=== PATIENT | female | born 1955 | race Caucasian/White ===

== ENCOUNTER 2017-01-15 11:23 | Emergency (ER) | payer BC, OTHER ==
[~2017-01-15 11:23] MED LIST: Iopamidol 370 76% 100 ML VIAL ONE
[2017-01-15 12:29] LABS: #Lymphocytes 0.9 thou/uL (1.20-3.40); #Monocytes 0.4 thou/uL (0.11-0.59); #Neutrophils 4.7 thou/uL (1.40-6.50); %Basophils 0.7 % (0.0-1.0); %Eosinophils 0.2 % (0.0-10.0); %Lymphocytes 14.8 % (21.0-51.0); %Neutrophils 77.3 % (42.0-75.0); Hemoglobin 13.9 g/dL (12.0-16.0); Mean Corpuscular HGB CONC 33.5 g/dL (32.0-36.0); Mean Corpuscular Hemoglobin 33.3 pg (27.0-31.0); Mean Corpuscular Volume 99.5 fl (81.0-99.0); Mean Platelet Volume 7.2 fL (7.4-10.4); Platelet Count 216 thou/uL (130-400); RBC Distribution Width 11.4 % (11.5-14.5); Red Blood Cell (RBC) Count 4.18 mill/uL (4.20-5.40)
[2017-01-15] MEDS ORDERED: Ondansetron HCl/PF 4 MG/2 ML Vial ONE (12:29)
[2017-01-15 12:42] LABS: ALT (SGPT) 33 U/L (0-55); AST (SGOT) 36 U/L (5-34); Albumin 3.6 g/dL (3.5-5.0); Alkaline Phosphatase 99 U/L (40-150); Anion Gap 11 mmol/L (10-20); BUN (Urea Nitrogen) 13 mg/dL (9.8-20.1); Bilirubin, Total 0.3 mg/dL (0.2-1.2); Calc. Creatinine Clearance 0 mL/min (70-130); Calcium 8.6 mg/dL (7.8-10.44); Carbon Dioxide 22 mmol/L (22-29); Chloride 108 mmol/L (98-107); Estimated GFR-MDRD 78; Globulin 2.9 g/dL (2.4-3.5); Glucose 129 mg/dL (70-105); Lipase 5 U/L (8-78); Potassium 3.7 mmol/L (3.5-5.1); Protein, Total 6.5 g/dL (6.0-8.3); Sodium 137 mmol/L (136-145)
[2017-01-15] MEDS ORDERED: diphenhydrAMINE HCl 50 MG/ML 1 ML VIAL ONE (12:56)
[2017-01-15 13:55] LABS: Bilirubin Negative (Negative); Blood, Urine Negative (Negative); Clarity Clear (Clear); Glucose, Urine (Dipstick) Negative (Negative); Leukocyte Negative (Negative); Nitrite Negative (Negative); Protein, Urine (Dipstick) Negative (Neg-Trace); Urobilinogen 0.2 mg/dL (0.2-1.0); pH, Urine 5.5 (5.0-9.0)
[2017-01-15 13:57] LABS: Specific Gravity, Urine 1.006 (1.005-1.030)
--- NOTE | 2017-01-15 20:33 | CT ---
CT ABDOMEN AND PELVIS WITH CONTRAST: Date: 01-15-[address] of the abdomen and pelvis was performed using both oral and IV contrast. Axial slices were acquired then coronal reconstructions were done. FINDINGS: The lung bases are clear. The liver, spleen, pancreas, adrenal glands, kidneys, and abdominal aorta showed no acute changes. There has been a prior cholecystectomy. The major finding on the study is multiple dilated fluid filled loops of bowel consistent with a bow el obstruction. The small bowel is dilated to a width of 3.5-4 cm in some places. There is also some mild dilation and fluid filling of the right colon around to about the mid transverse level. The di stal colon seems normal in size. Thus, a potential transition point in the transverse colon region i s suggested. No free air or free fluid was seen at the moment. CT of the pelvis remarkable only for the multiple dilated loops of bowel. No free fluid was seen in the pelvis. IMPRESSION: 1. Multiple dilated loops of bowel consistent with a bowel obstruction. Since there is still some mi ld dilatation and fluid filling of the right colon around to the mid transverse region, this felt li ke that may be the location of the transition point. 2. Findings discussed with Dr. Vázquez at 1400 on 01-15-17. POS: HOME
== END 2017-01-15 14:43 | disposition short-term general hospital (02) ==
LOC: BURERS 11:23
DX: K56.60 Unspecified intestinal obstruction (principal); F32.9 Major depressive disorder, single episode, unspecified; Z79.899 Other long term (current) drug therapy
CPT/HCPCS: 74177; 80053; 81003; 83690; 85025; 96361; 96374; 96375; A4216; J1200; J2270; J2405

== ENCOUNTER 2017-05-30 08:54 | Outpatient (CLI) | payer BC | END 2017-05-30 08:55 | disposition home or self-care (01) | LOC: BURLAB 08:54 | PROVIDERS: ATTEND Internal Medicine | DX: R19.7 Diarrhea, unspecified (principal) | CPT/HCPCS: 83630; 87015; 87045; 87046; 87077; 87177; 87186; 87206; 87324; 87449; 87899 ==

== ENCOUNTER 2020-03-12 07:31 | Outpatient (CLI) | payer BC ==
--- NOTE | 2020-03-12 12:13 | RAD ---
RIGHT HAND 3 VIEWS: DATE: 03/12/2020. FINDINGS: No fracture or acute bony change was seen. The joints were unremarkable in appearance. The carpal b ones appear normal. IMPRESSION: No significant findings. POS: HOME
--- NOTE | 2020-03-12 12:16 | RAD ---
LEFT HAND 3 VIEWS: DATE: 03/12/2020. FINDINGS: No fracture or acute bony change was seen. The joints were unremarkable in appearance. The 5th digi t seems extended at the 5th MCP joint. IMPRESSION: No acute finding. POS: HOME
== END 2020-03-12 07:32 | disposition home or self-care (01) ==
LOC: BURRAD 07:31
PROVIDERS: ATTEND Internal Medicine
DX: M25.541 Pain in joints of right hand (principal); M25.542 Pain in joints of left hand

== ENCOUNTER 2022-06-16 08:44 | Outpatient (CLI) | payer BC | END 2022-06-16 08:45 | disposition home or self-care (01) | LOC: BURRAD 08:44 | PROVIDERS: ATTEND Internal Medicine | DX: M25.512 Pain in left shoulder (principal) ==

== ENCOUNTER 2024-02-22 19:24 | Emergency (ER) | payer MEDICARE ==
[2024-02-22 20:02] LABS: #Basophils 0.1 thou/uL (0.0-0.2); #Eosinphils 0.2 thou/uL (0.0-0.7); #Lymphocytes 3.2 thou/uL (1.20-3.40); #Monocytes 0.5 thou/uL (0.11-0.59); #Neutrophils 2.9 thou/uL (1.40-6.50); %Basophils 1.2 % (0.0-1.0); %Eosinophils 2.2 % (0.0-10.0); %Lymphocytes 46.9 % (21.0-51.0); %Monocytes 7.6 % (0.0-10.0); %Neutrophils 42.1 % (42.0-75.0); Hematocrit 39.3 % (36.0-47.0); Hemoglobin 12.7 g/dL (12.0-16.0); Mean Corpuscular HGB CONC 32.3 g/dL (32.0-36.0); Mean Corpuscular Hemoglobin 31.5 pg (27.0-31.0); Mean Corpuscular Volume 97.6 fl (78.0-98.0); Mean Platelet Volume 6.3 fL (7.4-10.4); Platelet Count 245 10x3/uL (130-400); RBC Distribution Width 11.5 % (11.5-14.5); Red Blood Cell (RBC) Count 4.03 mill/uL (4.20-5.40); White Blood Cell (WBC) Count 6.9 10x3/uL (4.8-10.8)
[2024-02-22 20:19] LABS: ALT (SGPT) 49 U/L (8-55); AST (SGOT) 43 U/L (5-34); Albumin 3.9 g/dL (3.4-4.8); Alkaline Phosphatase 107 U/L (40-110); Anion Gap 15 mmol/L (10-20); BUN (Urea Nitrogen) 7 mg/dL (9.8-20.1); Bilirubin, Total 0.2 mg/dL (0.2-1.2); Calc. Creatinine Clearance 0 mL/min (70-130); Calcium 8.7 mg/dL (7.8-10.44); Carbon Dioxide 23 mmol/L (23-31); Chloride 99 mmol/L (98-107); Estimated GFR 80; Globulin 2.5 g/dL (2.4-3.5); Glucose 88 mg/dL (80-115); Potassium 3.5 mmol/L (3.5-5.1); Protein, Total 6.4 g/dL (5.8-8.1); Sodium 133 mmol/L (136-145)
[2024-02-22 20:20] LABS: Troponin I 0.016 ng/mL (< 0.028)
[2024-02-22 23:31] LABS: Bilirubin Negative (Negative); Blood, Urine Negative (Negative); Clarity Clear (Clear); Glucose, Urine (Dipstick) Negative (Negative); Ketone, Urine Negative (Negative); Leukocyte Negative (Negative); Nitrite Negative (Negative); Protein, Urine (Dipstick) Negative (Neg-Trace); Specific Gravity, Urine Less/Equal 1.005 (1.005-1.030); Urobilinogen 0.2 mg/dL (Less than 2); pH, Urine 5.5 (5.0-9.0)
[2024-02-22 23:32] LABS: Bacteria/HPF None Seen HPF (None Seen); CAUTI Indications for Culture Alt mental st,lethar; RBC/HPF 0-3 HPF (0-3); Squamous Epithelial None Seen HPF (0-3); Urine Culture Reflex No No; WBC/HPF None Seen HPF (0-3)
== END 2024-02-22 23:55 | disposition home or self-care (01) ==
LOC: BURERS 19:24
DX: R53.1 Weakness (principal); R41.82 Altered mental status, unspecified; R29.700 NIHSS score 0; E03.9 Hypothyroidism, unspecified; Z79.899 Other long term (current) drug therapy
CPT/HCPCS: 36415; 70450; 71045; 71275; 80053; 81001; 83880; 84484; 85025; 93005; Q9967

== ENCOUNTER 2025-08-24 11:24 | Emergency (ER) | payer MEDICARE ==
[2025-08-24 12:19] LABS: Hematocrit 37.2 % (36.0-47.0); Hemoglobin 12.8 g/dL (12.0-16.0); Mean Corpuscular Hemoglobin 33.4 pg (27.0-31.0); Mean Corpuscular Volume 96.9 fl (78.0-98.0); Platelet Count 235 10x3/uL (130-400); Red Blood Cell (RBC) Count 3.84 mill/uL (4.20-5.40); White Blood Cell (WBC) Count 6.2 10x3/uL (4.8-10.8)
[2025-08-24 12:28] LABS: ALT (SGPT) 52 U/L (Less than 34); AST (SGOT) 34 U/L (11-34); Albumin 3.7 g/dL (3.1-4.5); Alkaline Phosphatase 119 U/L (40-110); Anion Gap 15 mmol/L (10-20); BUN (Urea Nitrogen) 19 mg/dL (9.8-20.1); Bilirubin, Total 0.3 mg/dL (0.3-1.2); Calc. Creatinine Clearance 0 mL/min (70-130); Calcium 8.5 mg/dL (7.8-10.44); Carbon Dioxide 21 mmol/L (23-31); Chloride 103 mmol/L (98-107); Globulin 2.6 g/dL (2.4-3.5); Glucose 66 mg/dL (80-115); Potassium 4.5 mmol/L (3.5-5.1); Sodium 134 mmol/L (136-145)
[2025-08-24 12:29] LABS: MDiff Complete? YES; Other Cell Types 2; Platelet Adequacy Comment Appears Adequate; Reflex for Review?? NO
[2025-08-24 12:30] LABS: Troponin I 0.011 ng/mL (< 0.028)
[2025-08-24 12:37] LABS: Glucose, Urine (Dipstick) Negative (Negative); Leukocyte Negative (Negative); Protein, Urine (Dipstick) Negative (Neg-Trace); Specific Gravity, Urine Less/Equal 1.005 (1.005-1.030)
[2025-08-24 12:45] LABS: Bacteria/HPF None Seen HPF (None Seen); CAUTI Indications for Culture Dysuria,urgency,freq; RBC/HPF None Seen HPF (0-3); WBC/HPF None Seen HPF (0-3)
[2025-08-24 12:46] LABS: Urine Culture Reflex No No
== END 2025-08-24 13:25 | disposition home or self-care (01) ==
LOC: BURERS 11:24
DX: I95.89 Other hypotension (principal); E03.9 Hypothyroidism, unspecified; Z79.899 Other long term (current) drug therapy; Z79.890 Hormone replacement therapy
CPT/HCPCS: 36415; 71046; 80053; 81001; 83880; 84484; 85025; 93005; 94760; 96360

== ENCOUNTER 2025-09-19 10:03 | Emergency (ER) | payer MEDICARE ==
[2025-09-19 10:45] LABS: #Basophils 0.1 thou/uL (0.0-0.2); #Eosinophils 0.1 thou/uL (0.0-0.7); #Lymphocytes 2.0 thou/uL (1.20-3.40); #Monocytes 0.8 thou/uL (0.11-0.59); #Neutrophils 6.0 thou/uL (1.40-6.50); %Basophils 0.6 % (0.0-1.0); %Eosinophils 1.5 % (0.0-10.0); %Lymphocytes 22.3 % (21.0-51.0); %Monocytes 8.6 % (0.0-10.0); %Neutrophils 67.0 % (42.0-75.0); Hematocrit 37.4 % (36.0-47.0); Hemoglobin 12.4 g/dL (12.0-16.0); Mean Corpuscular Hemoglobin 33.0 pg (27.0-31.0); Mean Corpuscular Volume 99.8 fl (78.0-98.0); Platelet Count 220 10x3/uL (130-400); Red Blood Cell (RBC) Count 3.75 mill/uL (4.20-5.40); White Blood Cell (WBC) Count 9.0 10x3/uL (4.8-10.8)
[2025-09-19 10:50] LABS: Glucose, Urine (Dipstick) Negative (Negative); Leukocyte Negative (Negative); Protein, Urine (Dipstick) Negative (Neg-Trace); Specific Gravity, Urine Less/Equal 1.005 (1.005-1.030)
[2025-09-19 10:55] LABS: Bacteria/HPF Rare-Few HPF (None Seen); CAUTI Indications for Culture Pelvic or flank pain; RBC/HPF None Seen HPF (0-3); WBC/HPF None Seen HPF (0-3)
[2025-09-19 10:56] LABS: Urine Culture Reflex No No
[2025-09-19 11:00] LABS: ALT (SGPT) 74 U/L (Less than 34); AST (SGOT) 41 U/L (11-34); Albumin 3.6 g/dL (3.1-4.5); Alkaline Phosphatase 107 U/L (40-110); Anion Gap 14 mmol/L (10-20); BUN (Urea Nitrogen) 25 mg/dL (9.8-20.1); Bilirubin, Total 0.4 mg/dL (0.3-1.2); Calc. Creatinine Clearance 0 mL/min (70-130); Calcium 8.6 mg/dL (7.8-10.44); Carbon Dioxide 21 mmol/L (23-31); Chloride 107 mmol/L (98-107); Globulin 2.5 g/dL (2.4-3.5); Glucose 82 mg/dL (80-115); Potassium 4.2 mmol/L (3.5-5.1); Sodium 138 mmol/L (136-145)
== END 2025-09-19 11:45 | disposition home or self-care (01) ==
LOC: BURERS 10:03
DX: I95.9 Hypotension, unspecified (principal); E03.9 Hypothyroidism, unspecified; R00.0 Tachycardia, unspecified; Z79.899 Other long term (current) drug therapy
CPT/HCPCS: 80053; 81001; 85025; 93005; 96360

== ENCOUNTER 2025-09-22 11:11 | Emergency (ER) | payer MEDICARE ==
[2025-09-22 12:12] LABS: #Basophils 0.1 thou/uL (0.0-0.2); #Eosinophils 0.0 thou/uL (0.0-0.7); #Lymphocytes 1.8 thou/uL (1.20-3.40); #Monocytes 0.7 thou/uL (0.11-0.59); #Neutrophils 5.4 thou/uL (1.40-6.50); %Basophils 0.7 % (0.0-1.0); %Eosinophils 0.6 % (0.0-10.0); %Lymphocytes 22.2 % (21.0-51.0); %Monocytes 9.3 % (0.0-10.0); %Neutrophils 67.3 % (42.0-75.0); Hematocrit 39.5 % (36.0-47.0); Hemoglobin 12.6 g/dL (12.0-16.0); Mean Corpuscular Hemoglobin 32.5 pg (27.0-31.0); Mean Corpuscular Volume 102.0 fl (78.0-98.0); Platelet Count 230 10x3/uL (130-400); Red Blood Cell (RBC) Count 3.86 mill/uL (4.20-5.40); White Blood Cell (WBC) Count 8.0 10x3/uL (4.8-10.8)
[2025-09-22 12:16] LABS: Glucose, Urine (Dipstick) Negative (Negative); Leukocyte Negative (Negative); Protein, Urine (Dipstick) Negative (Neg-Trace); Specific Gravity, Urine 1.010 (1.005-1.030)
[2025-09-22 12:25] LABS: Bacteria/HPF Rare-Few HPF (None Seen); CAUTI Indications for Culture Dysuria,urgency,freq; RBC/HPF 0-3 HPF (0-3); WBC/HPF None Seen HPF (0-3)
[2025-09-22 12:26] LABS: Urine Culture Reflex No No
[2025-09-22 12:28] LABS: ALT (SGPT) 54 U/L (Less than 34); AST (SGOT) 39 U/L (11-34); Albumin 3.6 g/dL (3.1-4.5); Alkaline Phosphatase 107 U/L (40-110); Anion Gap 14 mmol/L (10-20); BUN (Urea Nitrogen) 15 mg/dL (9.8-20.1); Bilirubin, Total 0.6 mg/dL (0.3-1.2); Calc. Creatinine Clearance 0 mL/min (70-130); Calcium 9.1 mg/dL (7.8-10.44); Carbon Dioxide 22 mmol/L (23-31); Chloride 104 mmol/L (98-107); Globulin 3.1 g/dL (2.4-3.5); Glucose 71 mg/dL (80-115); Lipase 17 U/L (8-78); Potassium 4.2 mmol/L (3.5-5.1); Sodium 136 mmol/L (136-145)
[2025-09-22] MEDS ORDERED: Iopamidol 370 76% 100 ML VIAL ONE (13:13)
[2025-09-22] MEDS ORDERED: Ketorolac Tromethamine 30 MG (1 mL) VIAL ONE (13:43)
== END 2025-09-22 15:00 | disposition home or self-care (01) ==
LOC: BURERS 11:11
DX: K59.00 Constipation, unspecified (principal); E03.9 Hypothyroidism, unspecified; Z79.899 Other long term (current) drug therapy; Z79.890 Hormone replacement therapy
CPT/HCPCS: 74177; 80053; 81001; 83605; 83690; 85025; 96374; 96375; J1885; J2270; Q9967